=== PATIENT | female | born 1985 | race Two or more races ===

== ENCOUNTER 2017-11-13 09:22 | Emergency (ER) | payer MEDICAID ==
[~2017-11-13] VITALS: Ht 162.6 cm; Wt 77.1 kg
[2017-11-13 10:00] LABS: Basophils # (auto) 0.1 uL; Basophils % (auto) 0.6 % (0.0-2.0); Eosinophils # (auto) 0.1 uL; Eosinophils % (auto) 1.1 % (0.0-7.0); Hematocrit 45.7 % (36.0-46.0); Hemoglobin 15.1 g/dL (12.2-16.2); Lymphocytes # (auto) 2.7 uL; Mean Corpuscular Hemoglobin 30.3 pg (28.0-32.0); Mean Corpuscular Volume 91.6 fL (80.0-100.0); Monocytes # (auto) 0.8 uL; Monocytes % (auto) 9.3 % (0.0-12.0); Nucleated Red Blood Cells % 0.1 %; Platelet Count (auto) 236 10^3/uL (140-450); Red Blood Cells 4.99 10^6/uL (4.0-5.20); Red Cell Distribution Width 13.3 % (11.8-14.3); White Blood Cell 8.6 10^3/uL (4.4-10.8)
[2017-11-13 10:06] LABS: Urine Bacteria NONE SEEN /hpf (None Seen); Urine Blood 3+ /uL (Negative); Urine Mucus FEW (None Seen); Urine Specific Gravity 1.023 (1.001-1.035); Urine WBC 2 /hpf (0 - 5)
[2017-11-13 10:19] LABS: Albumin 4.2 g/dL (3.4-5.0); BUN/Creatinine Ratio 11.4; Bilirubin, Total 0.4 mg/dL (0.2-1.0); Calcium 8.8 mg/dL (8.5-10.1); Total Protein 8.2 g/dL (6.4-8.2)
[2017-11-13 11:51] VITALS: BP 138/93
== END 2017-11-13 13:08 | disposition home or self-care (01) ==
LOC: ER 09:26
DX: O20.0 Threatened abortion (principal); Z3A.09 9 weeks gestation of pregnancy
CPT/HCPCS: 36415; 76801; 80053; 81001; 84702; 85025

== ENCOUNTER 2024-08-19 18:52 | Inpatient (IN) | payer MEDICAID ==
[~2024-08-19] VITALS: Ht 162.6 cm; Wt 81.0 kg
--- NOTE | 2024-08-19 19:06 | ED.PDOC ---
History of Present Illness HPI Comments 39 y/o F, with a history of HTN and and a FMHx of DM, is BIBA for c/o epigastric abdominal pain, that radiates towards her back, today. Patient endorses on sudden and unprovoked onset of 10/10 pain, with no prior history of in the past, following consumption of "buffalo wings," earlier, today. Since initial onset, patient reports on pain improving. She denies being , currently, along with having any nausea, vomiting, diarrhea, constipation, urinary symptoms, or other associated symptoms or modifiers at this time. Time Seen by MD: 19:00 Primary Care Provider: NONE Reviewed Notes: Nurses Notes, Edge Inker Notes, Medications, Allergies Allergies: Coded Allergies: No Known Drug Allergy (Verified Allergy, Unknown, 11/13/17) Information Source: Patient, Emergency Med Personnel Mode of Arrival: EMS Severity: Moderate Timing: Hours Duration: Since onset Prehospital treatment: 12 Lead EKG, Architect Intern Past Medical History PAST MEDICAL HISTORY: HTN Surgical History: MEDICAL TRANSPORT SPECIALIST History: Denies all MEDICAL TRANSPORT SPECIALIST Hx Family History Family History: No family hx of Cancer, No family hx of Heart jyothi, No family hx of HTN, No family hx ofKidney jyothi, No family hx of Liver jyothi, No family hx of Lung jyothi, No family hx of Stroke, Family hx of DM Social History Smoker: Non-Smoker Alcohol: Denies ETOH Use Drugs: Denies Drug Use Lives In: Home Constitutional: denies: chills, diaphoresis, fatigue, fever, malaise, sweats, weakness, others EENTM: denies: blurred vision, double vision, ear bleeding, ear discharge, ear drainage, ear pain, ear ringing, eye pain, eye redness, hearing loss, mouth pain, mouth swelling, nasal discharge, nose bleeding, nose congestion, nose pain, photophobia, tearing, throat pain, throat swelling, voice changes, others Respiratory: denies: cough, hemoptysis, orthopnea, SOB at rest, shortness of breath, SOB with excertion, stridor, wheezing, others Cardiovascular: denies: chest pain, dizzy spells, diaphoresis, Dyspnea on exertion, edema, irregular heart beat, left arm pain, lightheadedness, palpitations, PND, syncope, others Gastrointestinal: reports: abdominal pain; denies: abdomen distended, blood streaked bowels, constipated, diarrhea, dysphagia, difficulty swallowing, hematemesis, melena, nausea, poor appetite, poor fluid intake, rectal bleeding, rectal pain, vomiting, others Genitourinary: denies: abnormal vagina bleeding, burning, dyspareunia, dysuria, flank pain, frequency, hematuria, incontinence, pain, , vagina discharge, urgency, others Neurological: denies: dizziness, fainting, headache, left sided numbness, left sided weakness, numbness, paresthesia, pre-existing deficit, right sided numbness, right sided weakness, seizure, speech problems, tingling, tremors, weakness, others Musculoskeletal: reports: back pain; denies: gout, joint pain, joint swelling, muscle pain, muscle stiffness, neck pain, others Integumetry: denies: bruises, change in color, change in hair/nails, dryness, laceration, lesions, lumps, rash, wounds, others Allergic/Immunocompromised: denies: Difficulty Healing, Frequent Infections, Hives, Itching, others Hematologic/Lymphatic: denies: anemia, blood clots, easy bleeding, easy bruising, swollen glands, others Endocrine: denies: excessive hunger, excessive sweating, excessive thirst, excessive urination, flushing, intolerance to cold, intolerance to heat, unexplained weight gain, unexplained weight loss, others Psychiatric: denies: anxiety, bipolar disorder, depression, hopeless, panic disorder, schizophrenia, sleepless, suicidal, others All Other Systems: Reviewed and Negative Physical Exam General Appearance: Moderate Distress HEENT: Normal ENT Inspection, Pharynx Normal, TMs Normal Neck: Full Range of Motion, Non-Tender, Normal, Normal Inspection Respiratory: Chest Non-Tender, Lungs Clear, No Accessory Muscle Use, No Respiratory Distress, Normal Breath Sounds Cardiovascular: No Edema, No JVD, No Murmur, No Gallop, Normal Peripheral Pulses, Regular Rate/Rhythm Breast Exam: Deferred Gastrointestinal: Epigastric, No Organomegaly, No Pulsatile Mass, Normal Bowel Sounds, Soft, Tenderness Genitalia: Deferred Pelvic: Deferred Rectal: Deferred Extremities: No calf tenderness, Normal capillary refill, Normal inspection, Normal range of motion, Non-tender, No pedal edema Musculoskeletal : Apperance: Normal Neurologic: Alert, speech assistant II-XII nml as Tested, No Motor Deficits, Normal Affect, Normal Mood, No Sensory Deficits Cerebellar Function: Normal Reflexes: Normal Skin: Dry, Normal Color, Warm Lymphatic: No Adenopathy Was a procedure done? Was a procedure done?: No Differential Dx Considerations may include: gastritis, gastroenteritis, PUD, GERD, cholelithiasis, cholecystitis, , viral syndrome, spoiled food, amongst others X-Ray, Labs, Meds, VS Vital Signs Date Time Temp Pulse Resp B/P (MAP) Pulse Ox O2 Delivery O2 Flow Rate FiO2 08/19/24 19:09 98.1 86 16 155/90 (111) 100 98.1 Lab Test 08/19/24 20:04 08/19/24 19:31 Range/Units Urine Color Colorless Yellow Urine Clarity Clear Clear Urine pH 7.0 5.0-9.0 Urine Specific [place] 1.011 1.001-1.035 Urine Protein Negative Negative Urine Ketones Negative Negative Urine Blood Negative Negative /uL Urine Nitrite Negative Negative Urine Bilirubin Negative Negative Urine Urobilinogen Normal Negative mg/dL Urine Leukocyte Esterase Negative Negative /uL Urine RBC 1 0 - 4 /hpf Urine Microscopic WBC < 1 0-5 /HPF Urine Squamous Epithelial Cells Few <5 /hpf Urine Bacteria Few H None Seen /hpf Urine Glucose Normal Normal mg/dL White Blood Count 6.8 4.4-10.8 10^3/uL Red Blood Count 4.75 4.0-5.20 10^6/uL Hemoglobin 14.5 12.2-16.2 g/dL Hematocrit 42.9 36.0-46.0 % Mean Corpuscular Volume 90.4 80.0-100.0 fL Mean Corpuscular Hemoglobin 30.5 28.0-32.0 pg Mean Corpuscular Hemoglobin Concent 33.8 32.0-36.0 g/dL Red Cell Distribution Width 13.0 11.8-14.3 % Platelet Count 224 140-450 10^3/uL Mean Platelet Volume 9.6 6.9-10.8 fL Neutrophils (%) (Auto) 55.1 37.0-80.0 % Lymphocytes (%) (Auto) 32.4 10.0-50.0 % Monocytes (%) (Auto) 9.9 0.0-12.0 % Eosinophils (%) (Auto) 2.0 0.0-7.0 % Basophils (%) (Auto) 0.6 0.0-2.0 % Neutrophils # (Auto) 3.8 1.6-8.6 10 ^3/uL Lymphocytes # (Auto) 2.2 0.4-5.4 10 ^3/uL Monocytes # (Auto) 0.7 0-1.3 10 ^3/uL Eosinophils # (Auto) 0.1 0-0.8 10 ^3/uL Basophils # (Auto) 0 0-0.2 10 ^3/uL Nucleated Red Blood Cells 0.0 % Sodium Level 142 136-145 mmol/L Potassium Level 3.6 3.5-5.1 mmol/L Chloride Level 109 H 98-107 mmol/L Carbon Dioxide Level 25 20-31 mmol/L Anion Gap 8 5-15 Blood Urea Nitrogen 17 9-23 mg/dL Creatinine 0.84 0.550-1.02 mg/dL Glomerular Filtration Rate Calc 91 >90 mL/min BUN/Creatinine Ratio 20.2 H 10.0-20.0 Serum Glucose 93 74-106 mg/dL Calcium Level 9.8 8.7-10.4 mg/dL Total Bilirubin 0.3 0.2-1.0 mg/dL Aspartate Amino Transferase (AST) 105 H 13-40 U/L Alanine Aminotransferase (ALT) 70 H 7-40 U/L Alkaline Phosphatase 87 46-116 U/L Total Protein 7.2 5.7-8.2 g/dL Albumin 4.8 3.2-4.8 g/dL Lipase 46 12-53 U/L Current Medications Medications (Trade) Dose Ordered Sig/Honey Route Start Time Stop Time Status Last Admin Ondansetron HCl (Zofran) 4 mg ONCE ONCE IV 08/19/24 19:15 08/19/24 19:16 DC 08/19/24 20:13 Sodium Chloride 500 ml @ 500 mls/hr Q1H ONCE IVB 08/19/24 19:15 08/19/24 20:14 DC 08/19/24 20:11 Pantoprazole Sodium (Protonix) 40 mg ONCE ONCE IV 08/19/24 19:15 08/19/24 19:16 DC 08/19/24 20:13 CBC is within normal limits The chemistry panel is within normal limits The patient was given Zofran 4 mg IV push for the nausea The patient was given Protonix 40 mg IV push The patient was bolused with normal saline at a 500 cc bolus. The ultrasound of the gallbladder shows cholelithiasis also consistent with acute cholecystitis The patient is pain has decreased somewhat. The patient was being admitted at this time. The patient understands and agrees with the management. Time of 1ST Reevaluation: 19:30 Reevaluation 1ST: Unchanged Patient Education/Counseling: Diagnosis, Treatment, Prognosis Family Education/Counseling: No Family Present Departure 1 Departure Time of Disposition: 20:27 Impression: Primary Impression: Acute abdominal pain Additional Impression: Acute cholecystitis Disposition: ADMITTED INPATIENT Condition: Fair Critical Care Note Critical Care Time?: No Stability Stability form required: Yes Unstable for transfer: ED Physician Assesment (Clinical assesment) Heart Score Heart Score: Heart Score Response (Comments) Value History N/A 0 EKG N/A 0 Age N/A 0 Risk Factors N/A 0 Troponin N/A 0 Total 0 I personally scribed for TALI PENA MD ([email or web address]) on 08/19/24 at 19:06. Electronically submitted by Aaron Yates ([email or web address]). TALI PENA MD Aug 19, 2024 19:06
[2024-08-19 19:44] LABS: Basophils # (auto) 0 10 ^3/uL (0-0.2); Basophils % (auto) 0.6 % (0.0-2.0); Eosinophils # (auto) 0.1 10 ^3/uL (0-0.8); Hematocrit 42.9 % (36.0-46.0); Hemoglobin 14.5 g/dL (12.2-16.2); Lymphocytes # (auto) 2.2 10 ^3/uL (0.4-5.4); Lymphocytes % (auto) 32.4 % (10.0-50.0); Mean Corpuscular Hemoglobin 30.5 pg (28.0-32.0); Mean Corpuscular Hgb Conc. 33.8 g/dL (32.0-36.0); Mean Corpuscular Volume 90.4 fL (80.0-100.0); Monocytes # (auto) 0.7 10 ^3/uL (0-1.3); Monocytes % (auto) 9.9 % (0.0-12.0); Neutrophils # (auto) 3.8 10 ^3/uL (1.6-8.6); Neutrophils % (auto) 55.1 % (37.0-80.0); Platelet Count (auto) 224 10^3/uL (140-450); Red Blood Cells 4.75 10^6/uL (4.0-5.20); White Blood Cell 6.8 10^3/uL (4.4-10.8)
[2024-08-19 19:55] LABS: Albumin 4.8 g/dL (3.2-4.8); Alkaline Phosphatase 87 U/L (46-116); Anion Gap 8 (5-15); BUN/Creatinine Ratio 20.2 (10.0-20.0); Blood Urea Nitrogen 17 mg/dL (9-23); Calcium 9.8 mg/dL (8.7-10.4); Carbon Dioxide 25 mmol/L (20-31); Glucose 93 mg/dL (74-106); Lipase 46 U/L (12-53); Potassium 3.6 mmol/L (3.5-5.1); Sodium 142 mmol/L (136-145); Total Protein 7.2 g/dL (5.7-8.2)
--- NOTE | 2024-08-19 20:08 | DVH ---
Procedure: US GALLBLADDER Study Date and Requested Time: 08/19/2024 07:08 PM History: pain Comparison: None Technique: Multiple high resolution gallegos-scale images obtained of the right upper quadrant of the abd omen with color Doppler for evaluation of blood flow and vascularity as indicated. Findings: Liver normal in size, measuring 14 cm in length, with homogenous echotexture and normal contours. No evidence of focal hepatic lesions, intrahepatic or extrahepatic ductal dilatation. Common bile duct m easures CBD diameter in diameter. Cholelithiasis with no evidence of abnormal wall thickening, biliary sludge, or pericholecystic flui d. Negative sonographic Murillo's sign. Pancreas only partially visualized due to overlying bowel gas but is otherwise unremarkable. Right kidney measures 14.7 cm in length, with normal contours, echotexture, and cortical thickness. T here is possible malrotation of the right kidney. The left kidney measures 14.2 cm in length with nor mal contour, echotexture and cortical thickness. No evidence of hydronephrosis, calculi, cystic or so lid renal lesions bilaterally. Partially visualized inferior vena cava unremarkable. Impression: Cholelithiasis with evidence of acute cholecystitis.Bilateral Kidneys are slightly prominent.
[2024-08-19] MEDS: SODIUM CHLORIDE 0.9% 500 ML IVB ONE (20:11)
[2024-08-19] MEDS: ONDANSETRON HCL 4 MG/2 ML VIAL IV ONE (20:13)
[2024-08-19] MEDS: PANTOPRAZOLE 40 MG/10 ML VIAL INJ IV ONE (20:13)
[2024-08-19 20:14] LABS: Alanine Aminotransferase 70 U/L (7-40); Aspartate Aminotransferase 105 U/L (13-40); Bilirubin, Total 0.3 mg/dL (0.2-1.0); Chloride 109 mmol/L (98-107)
[2024-08-19 20:21] LABS: Urine Bacteria FEW /hpf (None Seen); Urine Blood Negative /uL (Negative); Urine Clarity Clear (Clear); Urine Color Colorless (Yellow); Urine Protein, UAD Negative (Negative); Urine Specific Gravity 1.011 (1.001-1.035); Urine Squamous Epithelial Cell FEW /hpf (<5); Urine Urobilinogen Normal (Negative); Urine WBC < 1 /HPF (0-5)
[2024-08-19 20:38] VITALS: PULSE 76; RESP 18; O2SAT 98
[2024-08-19] MEDS ORDERED: KETOROLAC TROMETH 30 MG/ML 1ML VIAL IV PRN (21:45)
--- NOTE | 2024-08-19 21:55 | DVHHPRES ---
History of Present Illness Resident Creating Document: DANDRE LIU RESDIENT History of Present Illness This is a 39-year-old female with past medical history of hypertension came to the hospital due to abdominal pain for 3 hours. She reports an intermittent epigastric pain, radiating to the back, 8/10, burning in nature, with no clear exacerbating or relieving factor. She also reports shortness of breaths. She denies fever, nausea, vomiting, or any bowel and bladder habit changes. She had same pain few years back which was mild but had not perform any workup at the time. PMHx: Hypertension PSHx: Family history: Mom has hypertension, that has DM Social history: Denies smoking, or any other drug use. Home medication: Amlodipine 10 mg Allergic history: No known allergy Review of Systems Review of Systems General: patient denies fever, fatigue, weaknes, sweating, any recent changes in appetite and weight HEENT: No headaches, visiual changes, hearing loss, tinnitus, nasal congestion and discharge, and sore throat. Cardiovascular: Denies chest pain, palpitations, dyspnea on exertion, orthopnea, or claudication. Respiratory: Reports shortness of breaths Gastrointestinal: Reports abdominal pain Genitourinary: No dysuria, hematuria, discharge, frequency, urgency, nocturia, incontinence, and urinary retention. Endocrine: No heat or cold intolerance, polydipsia, polyuria, and polyphagia. Neurological: No dizziness, extremity weakness and numbness, tremors, gait disturbance, seizures, and memory impairment. Psychiatric: Denies depression, anxiety,or insomnia. Musculoskeletal: Denies neck pain, stiffness and swelling, back pain, muscle weakness, joint pain, stiffness, swelling, or limited range of motion. Skin: No rashes, itching, skin lesion, changes in hair, nail, skin texture and breast. Hematologic/Lymphatic: Denies easy bruising, bleeding tendencies, or lymph node enlargement. Allergies: Coded Allergies: No Known Drug Allergy (Verified Allergy, Unknown, 11/13/17) Exam Vital Signs Vital Signs Date Time Temp Pulse Resp B/P (MAP) Pulse Ox O2 Delivery O2 Flow Rate FiO2 08/19/24 20:38 76 18 98 Room Air* 0 21 08/19/24 19:09 98.1 155/90 (111) 98.1 Exam General Appearance: Alert, Oriented X3, Cooperative, No acute distress HEENT: Atraumatic, PERRLA, EOMI, Mucous membrane moist/pink Respiratory: Clear to auscultation, Normal air movement Cardiovascular: Regular rate, Normal S1, Normal S2, No murmurs, no chest wall tenderness Abdominal: Mild epigastric tenderness with negative Murillo sign Extremities: No clubbing, No cyanosis, No edema, Normal pulses, No tenderness/swelling Skin: No rashes, No breakdown, No significant lesion Neuro: Normal gait, Normal speech, Strength at 5/5 X4 ext, Normal tone, Sensation intact, Cranial nerves 3-12 NL, Reflexes 2+ Psych/Mental Status: Mental status NL, Mood NL Labs/Xrays Labs Test 08/19/24 20:04 08/19/24 19:31 Range/Units Urine Color Colorless Yellow Urine Clarity Clear Clear Urine pH 7.0 5.0-9.0 Urine Specific [place] 1.011 1.001-1.035 Urine Protein Negative Negative Urine Ketones Negative Negative Urine Blood Negative Negative /uL Urine Nitrite Negative Negative Urine Bilirubin Negative Negative Urine Urobilinogen Normal Negative mg/dL Urine Leukocyte Esterase Negative Negative /uL Urine RBC 1 0 - 4 /hpf Urine Microscopic WBC < 1 0-5 /HPF Urine Squamous Epithelial Cells Few <5 /hpf Urine Bacteria Few H None Seen /hpf Urine Glucose Normal Normal mg/dL White Blood Count 6.8 4.4-10.8 10^3/uL Red Blood Count 4.75 4.0-5.20 10^6/uL Hemoglobin 14.5 12.2-16.2 g/dL Hematocrit 42.9 36.0-46.0 % Mean Corpuscular Volume 90.4 80.0-100.0 fL Mean Corpuscular Hemoglobin 30.5 28.0-32.0 pg Mean Corpuscular Hemoglobin Concent 33.8 32.0-36.0 g/dL Red Cell Distribution Width 13.0 11.8-14.3 % Platelet Count 224 140-450 10^3/uL Mean Platelet Volume 9.6 6.9-10.8 fL Neutrophils (%) (Auto) 55.1 37.0-80.0 % Lymphocytes (%) (Auto) 32.4 10.0-50.0 % Monocytes (%) (Auto) 9.9 0.0-12.0 % Eosinophils (%) (Auto) 2.0 0.0-7.0 % Basophils (%) (Auto) 0.6 0.0-2.0 % Neutrophils # (Auto) 3.8 1.6-8.6 10 ^3/uL Lymphocytes # (Auto) 2.2 0.4-5.4 10 ^3/uL Monocytes # (Auto) 0.7 0-1.3 10 ^3/uL Eosinophils # (Auto) 0.1 0-0.8 10 ^3/uL Basophils # (Auto) 0 0-0.2 10 ^3/uL Nucleated Red Blood Cells 0.0 % Sodium Level 142 136-145 mmol/L Potassium Level 3.6 3.5-5.1 mmol/L Chloride Level 109 H 98-107 mmol/L Carbon Dioxide Level 25 20-31 mmol/L Anion Gap 8 5-15 Blood Urea Nitrogen 17 9-23 mg/dL Creatinine 0.84 0.550-1.02 mg/dL Glomerular Filtration Rate Calc 91 >90 mL/min BUN/Creatinine Ratio 20.2 H 10.0-20.0 Serum Glucose 93 74-106 mg/dL Calcium Level 9.8 8.7-10.4 mg/dL Total Bilirubin 0.3 0.2-1.0 mg/dL Aspartate Amino Transferase (AST) 105 H 13-40 U/L Alanine Aminotransferase (ALT) 70 H 7-40 U/L Alkaline Phosphatase 87 46-116 U/L Total Protein 7.2 5.7-8.2 g/dL Albumin 4.8 3.2-4.8 g/dL Lipase 46 12-53 U/L Assessment/Plan Assessment/Plan Cholelithiasis with possible cholecystitis Ultrasound shows, cholelithiasis with evidence of acute cholecystitis Surgical consultation Empiric antibiotic, Zosyn IV fluid Pain control NPO History of hypertension Continue amlodipine Transaminitis DIET: NPO GI PROPHYLAXIS:: Protonix CODE STATUS: Goal of care for more than 18 minutes, full code DISPOSITION: Med/surge Patient's status and plan discussed with the patient. Case discussed with Dr. [place]. Plan discussed with: Patient, Other (RN) Date of Service: Aug 19, 2024 Billing Provider: RENZO CLEVELAND MD Common Visit Codes: [id number] INP/OBS CARE (HIGH) HEWADMAL,DANDRE WHATLEY Aug 19, 2024 21:55 RENZO CLEVELAND MD Aug 20, 2024 10:59
[2024-08-19 22:33] LABS: Amphetamine Screen, Urine Neg (NEGATIVE); Barbiturate Scree,Urine Neg (NEGATIVE); Benzodiazephine Screen, Urine Neg (NEGATIVE); Cannabinoid Screen, Urine Neg (NEGATIVE); Cocaine Screen, Urine Neg (NEGATIVE); Opiate Scree,Urine Neg (NEGATIVE); Phencyclidine Screen, Urine Neg (NEGATIVE)
[2024-08-20 01:00] LABS: Cholesterol 199 mg/dL (< 200); HDL Cholesterol 41 mg/dL (40-59)
[2024-08-20 01:20] LABS: LDL Cholesterol 142 mg/dL (< 100); Triglycerides 200 mg/dL (< 150)
[2024-08-20] MEDS: ONDANSETRON HCL 4 MG/2 ML VIAL IV ONE (04:19)
[2024-08-20] MEDS: KETOROLAC TROMETH 30 MG/ML 1ML VIAL IV ONE (04:19)
[2024-08-20] MEDS: SODIUM CHLORIDE 0.9% 1,000 ML IV SCH (04:20)
[2024-08-20] MEDS: amLODIPine BESYLATE 5 MG TAB PO ONE (04:24)
[2024-08-20] MEDS: SODIUM CHLORIDE 0.9% 1,000 ML IV ONE (04:26)
[2024-08-20] MEDS: PIPERACILLIN-TAZOB 3.375GM 100 ML IV SCH (04:30)
[2024-08-20] MEDS: PIPERACILLIN-TAZOB 3.375GM 100 ML IV ONE (04:30)
[2024-08-20] MEDS ORDERED: MECLIZINE HCL 25 MG TAB PO PRN (04:30)
[2024-08-20 05:36] LABS: Basophils # (auto) 0 10 ^3/uL (0-0.2); Basophils % (auto) 0.8 % (0.0-2.0); Eosinophils # (auto) 0.1 10 ^3/uL (0-0.8); Eosinophils % (auto) 2.4 % (0.0-7.0); Hematocrit 40.7 % (36.0-46.0); Hemoglobin 13.6 g/dL (12.2-16.2); Lymphocytes # (auto) 2.2 10 ^3/uL (0.4-5.4); Lymphocytes % (auto) 34.5 % (10.0-50.0); Mean Corpuscular Hemoglobin 30.7 pg (28.0-32.0); Mean Corpuscular Hgb Conc. 33.4 g/dL (32.0-36.0); Mean Corpuscular Volume 91.9 fL (80.0-100.0); Monocytes # (auto) 0.7 10 ^3/uL (0-1.3); Monocytes % (auto) 10.8 % (0.0-12.0); Neutrophils # (auto) 3.2 10 ^3/uL (1.6-8.6); Neutrophils % (auto) 51.5 % (37.0-80.0); Nucleated Red Blood Cells % 0.1 %; Platelet Count (auto) 209 10^3/uL (140-450); Red Blood Cells 4.43 10^6/uL (4.0-5.20); Red Cell Distribution Width 13.2 % (11.8-14.3); White Blood Cell 6.2 10^3/uL (4.4-10.8)
[2024-08-20 05:49] LABS: Alkaline Phosphatase 75 U/L (46-116); Anion Gap 6 (5-15); Aspartate Aminotransferase 34 U/L (13-40); BUN/Creatinine Ratio 13.3 (10.0-20.0); Blood Urea Nitrogen 10 mg/dL (9-23); Calcium 9.2 mg/dL (8.7-10.4); Carbon Dioxide 24 mmol/L (20-31); Glucose 97 mg/dL (74-106); Lipase 41 U/L (12-53); Potassium 3.5 mmol/L (3.5-5.1); Sodium 140 mmol/L (136-145)
[2024-08-20 05:50] LABS: Albumin 4.6 g/dL (3.2-4.8); Bilirubin, Total 0.6 mg/dL (0.2-1.0)
[2024-08-20 05:57] LABS: Alanine Aminotransferase 54 U/L (7-40); Chloride 110 mmol/L (98-107)
[2024-08-20 06:39] LABS: INR 1.08 (0.9-1.15); Prothrombin Time 11.4 sec (9.3-11.8)
[2024-08-20 09:00] VITALS: BP 138/102; PULSE 68; RESP 14; TEMP 98.8; O2SAT 98
--- NOTE | 2024-08-20 10:44 | DVHPNRES ---
Progress Note Date Seen: Aug 20, 2024 Resident Creating Document: FRED SHANKAR RESIDENT Medical Necessity Reason Pt with a Central, PICC or Fol: No Subjective Review of Systems Tiffany Plunkett is a 39-year-old female with past medical history of hypertension came to the hospital due to abdominal pain for 3 hours. She reports an intermittent epigastric pain, radiating to the back, 8/10, burning in nature, with no clear exacerbating or relieving factor. She also reports shortness of breaths. She denies fever, nausea, vomiting, or any bowel and bladder habit changes. She had same pain few years back which was mild but had not perform any workup at the time. PMHx: Hypertension PSHx: Family history: Mom has hypertension, that has DM Social history: Denies smoking, or any other drug use. Home medication: Amlodipine 10 mg Allergic history: No known allergy Patient is seen and examined at the bedside. Patient currently reporting abdominal pain which is on and off mostly in the epigastrium on the right upper quadrant but no new complaints. Pending surgical evaluation. Patient reports: No new complaints Objective vital signs Vital Sign Date Time Temp Pulse Resp B/P (MAP) Pulse Ox O2 Delivery O2 Flow Rate FiO2 08/20/24 06:47 98.8 76 16 138/102 (114) 98 98.8 08/20/24 04:32 Room Air 08/19/24 20:38 0 21 Total Intake and Output 08/19/24 08/19/24 08/20/24 15:00 23:00 07:00 Intake Total 500 ml 1000 ml Balance 500 ml 1000 ml medications Current Medications Medications Dose Ordered Sig/Honey Route Start Time Stop Time Status Last Admin Dose Admin Sodium Chloride 1,000 ml @ 100 mls/hr Q10H IV 08/19/24 21:45 Piperacillin Sod/ Tazobactam Sod 100 ml @ 25 mls/hr Q8HR IV 08/19/24 22:00 08/20/24 06:15 25 MLS/HR Ketorolac Tromethamine 15 mg Q6HPRN PRN IV 08/19/24 21:45 08/24/24 21:44 Ondansetron HCl 4 mg Q4HPRN PRN IV 08/19/24 21:45 Morphine Sulfate 1 mg Q4HP PRN IV 08/19/24 21:45 Amlodipine Besylate 10 mg DAILY PO 08/20/24 10:00 Pantoprazole Sodium 40 mg DAILY IV 08/20/24 10:00 Meclizine HCl 25 mg Q8HPRN PRN PO 08/20/24 04:30 Examination General Appearance: Alert, Oriented X3, Cooperative, No acute distress HEENT: Atraumatic, PERRLA, EOMI, Mucous membrane moist/pink Respiratory: Clear to auscultation, Normal air movement Cardiovascular: Regular rate, Normal S1, Normal S2, No murmurs, no chest wall tenderness Abdominal: Mild epigastric tenderness with negative Murillo sign Extremities: No clubbing, No cyanosis, No edema, Normal pulses, No tenderness/swelling Skin: No rashes, No breakdown, No significant lesion Neuro: Normal gait, Normal speech, Strength at 5/5 X4 ext, Normal tone, Sensation intact Psych/Mental Status: Mental status NL, Mood NL laboratory and microbiology Laboratory Tests 08/20/24 05:10 Test 08/20/24 05:10 Range/Units Serum Glucose 97 74-106 mg/dL Labs and/or images reviewed: Labs reviewed by me, Image(s) reviewed by me Problem List/Assessment/Plan Problem List/Assessment/Plan # Cholelithiasis with Acute cholecystitis - Ultrasound shows, cholelithiasis with evidence of acute cholecystitis - Surgical consultation - Empiric antibiotic, Zosyn - IV fluid - Pain control - NPO # History of hypertension - Continue amlodipine # Transaminitis likly from above - Monitor for now Protonix Scds NPO Goals of care discussed with the patient for more than 29 mins: full code status Case discussed with , patient and RN Plan discussed with: Patient Date of Service: Aug 20, 2024 Billing Provider: KAYLEEN LIZARRAGA MD Common Visit Codes: [id number] INP/OBS CARE(HIGH) FRED SHANKAR RESIDENT Aug 20, 2024 10:44 KAYLEEN LIZARRAGA MD Aug 27, 2024 23:12
[2024-08-20] MEDS: PANTOPRAZOLE 40 MG/10 ML VIAL INJ IV SCH (11:31)
[2024-08-20] MEDS: amLODIPine BESYLATE 5 MG TAB PO SCH (11:32)
[2024-08-20 13:00] VITALS: BP 124/9; PULSE 76; RESP 16; TEMP 98.4; O2SAT 99
[2024-08-20 14:39] VITALS: BP 138/102; PULSE 68; RESP 68; TEMP 98.8; O2SAT 98
--- NOTE | 2024-08-20 15:01 | DVH ---
EXAM: XY CHEST XRAY 1 VIEW Indication: Sob Technique: Single frontal view of the chest was obtained Comparison: None FINDINGS: Lines and Tubes: None Lungs: No focal consolidation. Pleura: No effusion. No pneumothorax. Cardiomediastinal contours: Unremarkable Bones: No acute osseous abnormality. IMPRESSION: No acute cardiopulmonary disease.
[2024-08-20] MEDS ORDERED: KETOROLAC TROMETH 30 MG/ML 1ML VIAL IV ONE (16:45)
[2024-08-20 16:48] VITALS: BP 135/90; PULSE 84; RESP 16; TEMP 97.9; O2SAT 97
[2024-08-20 20:00] VITALS: PULSE 97; RESP 17; O2SAT 98
[2024-08-20 21:00] VITALS: BP 144/99; PULSE 97; RESP 17; TEMP 98.1; O2SAT 98
[2024-08-20 22:52] LABS: COVID19 ANTIGEN SOFIA FIA NEGATIVE (NEGATIVE); Rapid Influenza A Negative (Negative); Rapid Influenza B Negative (Negative)
[2024-08-21] VITALS (7 sets, daily range): BP systolic 119–146; BP diastolic 75–88; PULSE 60–98; RESP 14–21; TEMP 97.8–98.2; O2SAT 93–99
[2024-08-21 05:58] LABS: Basophils # (auto) 0 10 ^3/uL (0-0.2); Basophils % (auto) 0.8 % (0.0-2.0); Eosinophils # (auto) 0.2 10 ^3/uL (0-0.8); Eosinophils % (auto) 3.3 % (0.0-7.0); Hematocrit 44.8 % (36.0-46.0); Mean Corpuscular Hemoglobin 30.7 pg (28.0-32.0); Mean Corpuscular Hgb Conc. 33.5 g/dL (32.0-36.0); Mean Corpuscular Volume 91.5 fL (80.0-100.0); Monocytes # (auto) 0.6 10 ^3/uL (0-1.3); Monocytes % (auto) 10.4 % (0.0-12.0); Neutrophils # (auto) 2.8 10 ^3/uL (1.6-8.6); Neutrophils % (auto) 49.5 % (37.0-80.0); Nucleated Red Blood Cells % 0.1 %; Platelet Count (auto) 236 10^3/uL (140-450); Red Blood Cells 4.89 10^6/uL (4.0-5.20); Red Cell Distribution Width 13.2 % (11.8-14.3); White Blood Cell 5.7 10^3/uL (4.4-10.8)
[2024-08-21 06:19] LABS: Albumin 4.7 g/dL (3.2-4.8); Alkaline Phosphatase 77 U/L (46-116); Anion Gap 10 (5-15); Aspartate Aminotransferase 23 U/L (13-40); Bilirubin, Total 0.8 mg/dL (0.2-1.0); Blood Urea Nitrogen 10 mg/dL (9-23); Calcium 9.6 mg/dL (8.7-10.4); Carbon Dioxide 21 mmol/L (20-31); Glucose 91 mg/dL (74-106); Sodium 140 mmol/L (136-145); Total Protein 7.3 g/dL (5.7-8.2)
[2024-08-21 06:33] LABS: Alanine Aminotransferase 43 U/L (7-40); Chloride 109 mmol/L (98-107)
--- NOTE | 2024-08-21 11:49 | DVHINCON2 ---
Date of service: Aug 21, 2024 Family History: Diabetes mellitus G8 FATHER Hypertension G8 MOTHER Allergies: Coded Allergies: No Known Drug Allergy (Verified Allergy, Unknown, 11/13/17) Current Medications Current Medications Medications (Trade) Dose Ordered Sig/Honey Route PRN Reason Start Time Stop Time Status Last Admin Ibuprofen (Motrin Tablet) 600 mg TID PRN PO FOR HEADACHE 08/20/24 16:00 Vital Signs Vital Signs Date Time Temp Pulse Resp B/P (MAP) Pulse Ox O2 Delivery O2 Flow Rate FiO2 08/21/24 09:30 98.1 72 14 133/88 (103) 99 98.1 08/20/24 20:00 Room Air* 0 21 Labs/Diagnostic Data Labs Test 08/21/24 05:25 08/20/24 22:23 08/20/24 09:45 08/20/24 05:10 Range/Units White Blood Count 5.7 4.4-10.8 10^3/uL Red Blood Count 4.89 4.0-5.20 10^6/uL Hemoglobin 15.0 12.2-16.2 g/dL Hematocrit 44.8 # 36.0-46.0 % Mean Corpuscular Volume 91.5 80.0-100.0 fL Mean Corpuscular Hemoglobin 30.7 28.0-32.0 pg Mean Corpuscular Hemoglobin Concent 33.5 32.0-36.0 g/dL Red Cell Distribution Width 13.2 11.8-14.3 % Platelet Count 236 140-450 10^3/uL Mean Platelet Volume 9.9 6.9-10.8 fL Neutrophils (%) (Auto) 49.5 37.0-80.0 % Lymphocytes (%) (Auto) 36.0 10.0-50.0 % Monocytes (%) (Auto) 10.4 0.0-12.0 % Eosinophils (%) (Auto) 3.3 0.0-7.0 % Basophils (%) (Auto) 0.8 0.0-2.0 % Neutrophils # (Auto) 2.8 1.6-8.6 10 ^3/uL Lymphocytes # (Auto) 2.0 0.4-5.4 10 ^3/uL Monocytes # (Auto) 0.6 0-1.3 10 ^3/uL Eosinophils # (Auto) 0.2 0-0.8 10 ^3/uL Basophils # (Auto) 0 0-0.2 10 ^3/uL Nucleated Red Blood Cells 0.1 % Sodium Level 140 136-145 mmol/L Potassium Level 4.0 3.5-5.1 mmol/L Chloride Level 109 H 98-107 mmol/L Carbon Dioxide Level 21 20-31 mmol/L Anion Gap 10 5-15 Blood Urea Nitrogen 10 9-23 mg/dL Creatinine 0.77 0.550-1.02 mg/dL Glomerular Filtration Rate Calc 101 >90 mL/min BUN/Creatinine Ratio 13.0 10.0-20.0 Serum Glucose 91 74-106 mg/dL Calcium Level 9.6 8.7-10.4 mg/dL Total Bilirubin 0.8 0.2-1.0 mg/dL Aspartate Amino Transferase (AST) 23 13-40 U/L Alanine Aminotransferase (ALT) 43 H 7-40 U/L Alkaline Phosphatase 77 46-116 U/L Total Protein 7.3 5.7-8.2 g/dL Albumin 4.7 3.2-4.8 g/dL Influenza Type A Antigen Negative Negative Influenza Type B Antigen Negative Negative SARS-CoV-2 Antigen (Rapid) Negative NEGATIVE Lactic Acid Level 0.8 0.4-2.0 mmol/L Prothrombin Time 11.4 9.3-11.8 sec Prothrombin Time INR 1.08 0.9-1.15 Lipase 41 12-53 U/L Beta HCG, Quantitative 0.8 L 1.5-4.2 mIU/mL Test 08/19/24 20:04 08/19/24 19:31 Range/Units Urine Color Colorless Yellow Urine Clarity Clear Clear Urine pH 7.0 5.0-9.0 Urine Specific [place] 1.011 1.001-1.035 Urine Protein Negative Negative Urine Ketones Negative Negative Urine Blood Negative Negative /uL Urine Nitrite Negative Negative Urine Bilirubin Negative Negative Urine Urobilinogen Normal Negative mg/dL Urine Leukocyte Esterase Negative Negative /uL Urine RBC 1 0 - 4 /hpf Urine Microscopic WBC < 1 0-5 /HPF Urine Squamous Epithelial Cells Few <5 /hpf Urine Bacteria Few H None Seen /hpf Urine Glucose Normal Normal mg/dL Urine Opiates Screen Neg NEGATIVE Urine Fentanyl Screen Neg NEGATIVE Urine Barbiturates Screen Neg NEGATIVE Urine Phencyclidine Screen Neg NEGATIVE Urine Amphetamines Screen Neg NEGATIVE Urine Benzodiazepines Screen Neg NEGATIVE Urine Cocaine Screen Neg NEGATIVE Urine Cannabinoids Screen Neg NEGATIVE Hemoglobin A1c 5.3 <5.7 % A1C Magnesium Level 2.1 1.6-2.6 mg/dL Triglycerides Level 200 H < 150 mg/dL Cholesterol Level 199 < 200 mg/dL LDL Cholesterol 142 H < 100 mg/dL HDL Cholesterol 41 40-59 mg/dL Thyroid Stimulating Hormone (TSH) 1.76 0.55-4.78 uIU/mL Plasma/Serum Blood Alcohol < 3.0 <10 mg/dL Assessment [id number] R/O AC CHOLECYSTITIS CONSIDER LAP/OPEN CHOLECYSTECTOMY BASED ON ONGOING EVAL Plan discussed with: Patient PANCHO DAHL MD Aug 21, 2024 11:49
[2024-08-21] MEDS ORDERED: LIDOCAINE 1% HCL (LOCAL ANESTH.) INJ 20ML MDV ONE (12:29)
--- NOTE | 2024-08-21 12:32 | DVHPNRES ---
Progress Note Date Seen: Aug 21, 2024 Resident Creating Document: FRED SHANKAR RESIDENT Medical Necessity Reason Pt with a Central, PICC or Fol: No Subjective Review of Systems Tiffany Plunkett is a 39-year-old female with past medical history of hypertension came to the hospital due to abdominal pain for 3 hours. Patient is seen and examined at the bedside. Patient currently reporting abdominal pain which is on and off mostly in the epigastrium on the right upper quadrant but no new complaints. recruiting consultant evaluated patient , underwent laparoscopic cholecystectomy postoperative day 0, patient tolerated the procedure well. Patient reports: No new complaints Changes from previous H/P or p: No Changes Objective vital signs Vital Sign Date Time Temp Pulse Resp B/P (MAP) Pulse Ox O2 Delivery O2 Flow Rate FiO2 08/21/24 09:30 98.1 72 14 133/88 (103) 99 98.1 08/21/24 08:00 Room Air* 0 21 Total Intake and Output 08/20/24 08/20/24 08/21/24 15:00 23:00 07:00 Intake Total 100 ml 1030 ml Balance 100 ml 1030 ml medications Current Medications Medications Dose Ordered Sig/Honey Route Start Time Stop Time Status Last Admin Dose Admin Sodium Chloride 1,000 ml @ 100 mls/hr Q10H IV 08/19/24 21:45 08/21/24 05:34 100 MLS/HR Piperacillin Sod/ Tazobactam Sod 100 ml @ 25 mls/hr Q8HR IV 08/19/24 22:00 08/21/24 05:30 25 MLS/HR Ondansetron HCl 4 mg Q4HPRN PRN IV 08/19/24 21:45 Morphine Sulfate 1 mg Q4HP PRN IV 08/19/24 21:45 Amlodipine Besylate 10 mg DAILY PO 08/20/24 10:00 08/20/24 11:32 10 MG Pantoprazole Sodium 40 mg DAILY IV 08/20/24 10:00 08/21/24 09:49 40 MG Meclizine HCl 25 mg Q8HPRN PRN PO 08/20/24 04:30 Ibuprofen 600 mg TID PRN PO 08/20/24 16:00 Examination General Appearance: Alert, Oriented X3, Cooperative, No acute distress HEENT: Atraumatic, PERRLA, EOMI, Mucous membrane moist/pink Respiratory: Clear to auscultation, Normal air movement Cardiovascular: Regular rate, Normal S1, Normal S2, No murmurs, no chest wall tenderness Abdominal: Mild epigastric tenderness with negative Murillo sign Extremities: No clubbing, No cyanosis, No edema, Normal pulses, No tenderness/swelling Skin: No rashes, No breakdown, No significant lesion Neuro: Normal gait, Normal speech, Strength at 5/5 X4 ext, Normal tone, Sensation intact Psych/Mental Status: Mental status NL, Mood NL laboratory and microbiology Laboratory Tests 08/21/24 05:25 Test 08/21/24 05:25 Range/Units Serum Glucose 91 74-106 mg/dL Labs and/or images reviewed: Labs reviewed by me, Image(s) reviewed by me Problem List/Assessment/Plan Problem List/Assessment/Plan # Cholelithiasis with Acute cholecystitis - Ultrasound shows, cholelithiasis with evidence of acute cholecystitis - recruiting consultant evaluated patient , underwent laparoscopic cholecystectomy postoperative day 0, patient tolerated the procedure well. - Empiric antibiotic, Zosyn - IV fluid - Pain control # History of hypertension - Continue amlodipine # Transaminitis likly from above - Monitor for now Protonix Scds NPO Goals of care discussed with the patient for more than 29 mins: full code status Case discussed with , patient and RN Plan discussed with: Patient My Orders My Orders Orders - FRED SHANKAR Procedure Category Date Status Time Chest Xray 1 View XY 08/20/24 Resulted 14:04 Dietary Evaluation Review Comments: 1. Pending surgical consult, advance to Cardiac diet as able 2. Pt not to go >7 days NPO -> currently day 2 3. Will follow for diet progression/PO intake Expected Outcomes/Goals: Diet advancement, adequate oral intakes. Date of Service: Aug 21, 2024 Billing Provider: KAYLEEN LIZARRAGA MD Common Visit Codes: [id number] INP/OBS CARE(HIGH) FRED SHANKAR Aug 21, 2024 12:31 KAYLEEN LIZARRAGA MD Aug 27, 2024 23:25
[2024-08-21] MEDS ORDERED: KETOROLAC TROMETH 30 MG/ML 1ML VIAL IV ONE (14:00)
[2024-08-21] MEDS ORDERED: MORPHINE SULFATE 4 MG/ML SYR/VIAL IV PRN (14:00)
[2024-08-21] MEDS ORDERED: METOCLOPRAMIDE HCL 5MG/ml INJ 2ml VIAL IV ONE (14:00)
[2024-08-21] MEDS ORDERED: HYDROmorphone HCL 2 MG/ML VL/or syr IV PRN (14:00)
[2024-08-21] MEDS ORDERED: MIDAZOLAM HCL 2MG/2ML 2ml VIAL (1mg/ml) ONE (14:43)
[2024-08-21] MEDS ORDERED: fentaNYL CITRATE 100 MCG/2 ML VL ONE (14:43)
[2024-08-21] MEDS ORDERED: KETAMINE 50mg/ML 1ml syringe ONE (14:43)
[2024-08-21] MEDS ORDERED: ONDANSETRON HCL 4 MG/2 ML VIAL ONE (14:44)
[2024-08-21] MEDS ORDERED: HYDROmorphone HCL 2 MG/ML VL/or syr ONE (14:44)
[2024-08-21] MEDS ORDERED: LIDOCAINE HCL 2% TOP JELLY 5ML TOP ONE (14:44)
[2024-08-21] MEDS ORDERED: PROPOFOL 10 MG/ML 20 ML IV ONE (14:44)
[2024-08-21] MEDS ORDERED: ROCURONIUM 10MG/ML 10ML VIAL IV ONE (14:44)
[2024-08-21] MEDS ORDERED: GLYCOPYRROLATE 0.2 MG/ML 1ML VIAL ONE (14:44)
[2024-08-21] MEDS ORDERED: NEOSTIGMINE 1 MG/ML INJ (10mg/10ML VIAL) ONE (14:44)
[2024-08-21] MEDS ORDERED: LIDOCAINE 1% INJ PF 5ML AMP ONE (14:44)
[2024-08-21] MEDS ORDERED: SODIUM CHLORIDE LOCK 10 ML ONE (14:44)
[2024-08-21] MEDS ORDERED: ceFAZolin 2 GM/D5W100ml 100 ML IV ONE (14:45)
[2024-08-21] MEDS ORDERED: BUPIVACAINE 0.25% INJ 50ML VIAL ONE (15:14)
--- NOTE | 2024-08-21 15:54 | DVHINCON2 ---
DATE OF CONSULTATION: 08/21/2024 HISTORY OF PRESENT ILLNESS: This patient is 39 years old, coming in with right upper quadrant pain, now feeling better, some nausea, no vomiting. No constipation or diarrhea. No hematemesis or melena. No bleeding per rectum. PAST MEDICAL HISTORY: No diabetes, but she has hypertension. PAST SURGICAL HISTORY: . PHYSICAL EXAMINATION: VITAL SIGNS: Afebrile, stable signs. HEENT: With no evidence of pallor, cyanosis, or jaundice. NECK: Supple, nontender with no thyromegaly, lymphadenopathy. CHEST AND LUNGS: Clear. HEART: Within normal limits. ABDOMEN: Soft, tender in the right upper quadrant with minimal rebound. EXTREMITIES: Unremarkable. NEUROLOGIC: Intact. CLINICAL IMPRESSION: Acute cholecystitis. PLAN: Will be to consider laparoscopic possible open cholecystectomy. Benefits discussed and a consent obtained. MD ASPEN Marte/GABRIELLA/WOO TID: [id number] RECEIPT: [id number] cc: Suhas
[2024-08-21] MEDS ORDERED: MORPHINE SULFATE INJ 2 MG/ml SYRG IV PRN (16:30)
--- NOTE | 2024-08-21 17:18 | DVHOP2 ---
Operative Report [id number] AC CHOLECYSTITIS LAP CHOLECYSTECTOMY [id number] CC ONE DRAIN NO COMPLICATIONS PANCHO DAHL MD Aug 21, 2024 17:18
--- NOTE | 2024-08-21 17:29 | DVHOP ---
DATE OF SURGERY: 08/21/2024 PREOPERATIVE DIAGNOSIS: Acute cholecystitis. POSTOPERATIVE DIAGNOSIS: Acute cholecystitis. PROCEDURE: Laparoscopic cholecystectomy. SURGEON: Lincoln Barrientos MD SCAFFOLDING HELPER: None. ANESTHESIA: General. ESTIMATED BLOOD LOSS: 200 mL. DRAIN: One drain was used. COMPLICATIONS: No complications were encountered. DESCRIPTION OF PROCEDURE: The patient was prepped and draped in the usual sterile fashion in the supine position and a supraumbilical incision was applied, was taken down to the fascia. The Veress needle was introduced and CO2 insufflation was started, pressure of 15 mmHg. The needle was withdrawn, replaced with a 5 mm trocar and a telescope was introduced and the gallbladder was visualized. Adhesions were noted. A 12 mm port was applied close to the xiphisternum and two 5 mm ports were applied more laterally in subcostal line with instruments in place. The gallbladder was released from the adhesions and the patient in the head up and right upper lateral position, the gallbladder was then grasped at the fundus and the infundibulum and cystic duct and artery were , dissected out and clipped proximally, distally using the Hem-o-Landen clips and divided in between making sure that the CBD was kept out of harm's way at all times. The gallbladder was detached from the liver bed using Harmonic dissection, placed in an EndoCatch bag and removed from the xiphisternal wound without any complication. Hemostasis was secured. Irrigation fluid was removed and a size 19 Negrito drainage tube was placed to drain the liver bed along with the subhepatic space and bringing out from the lateral subcostal incision. After that, one port had been withdrawn and securing the drain with a silk suture. There was a bleed noted in the xiphisternal wound that was secured by open exploration and cautery. With this being done, EndoClose suture was used for the fascial closure of the xiphisternal wound. All ports were withdrawn after all the CO2 had been let out and the patient was placed in supine. The wounds were then brought together using 3-0 Monocryl suture in a subcuticular fashion. Surgical glue was applied. The patient tolerated the procedure well and was taken back to recovery room in a stable condition. MD ASPEN Marte/RUBI TID: [id number] RECEIPT: [id number] cc: Joe Norton
[2024-08-21] MEDS: HYDROmorphone HCL 2 MG/ML VL/or syr IV PRN (17:39)
[2024-08-21] MEDS: MORPHINE SULFATE INJ 2 MG/ml SYRG IV PRN (22:01)
[2024-08-22] VITALS (7 sets, daily range): BP systolic 134–148; BP diastolic 73–94; PULSE 69–111; RESP 16–19; TEMP 97.3–98.5; O2SAT 94–98
[2024-08-22] MEDS: ONDANSETRON HCL 4 MG/2 ML VIAL IV PRN (03:20)
[2024-08-22] MEDS: IBUPROFEN 600 MG TAB PO PRN (03:30)
[2024-08-22 05:50] LABS: Basophils # (auto) 0 10 ^3/uL (0-0.2); Basophils % (auto) 0.1 % (0.0-2.0); Eosinophils # (auto) 0 10 ^3/uL (0-0.8); Hematocrit 40.5 % (36.0-46.0); Hemoglobin 13.6 g/dL (12.2-16.2); Lymphocytes # (auto) 0.8 10 ^3/uL (0.4-5.4); Lymphocytes % (auto) 10.6 % (10.0-50.0); Mean Corpuscular Hemoglobin 30.5 pg (28.0-32.0); Mean Corpuscular Hgb Conc. 33.7 g/dL (32.0-36.0); Mean Corpuscular Volume 90.4 fL (80.0-100.0); Monocytes # (auto) 0.7 10 ^3/uL (0-1.3); Monocytes % (auto) 9.1 % (0.0-12.0); Neutrophils % (auto) 80.2 % (37.0-80.0); Platelet Count (auto) 222 10^3/uL (140-450); Red Blood Cells 4.48 10^6/uL (4.0-5.20); Red Cell Distribution Width 13.1 % (11.8-14.3); White Blood Cell 7.5 10^3/uL (4.4-10.8)
[2024-08-22 06:04] LABS: Albumin 4.5 g/dL (3.2-4.8); Alkaline Phosphatase 74 U/L (46-116); Anion Gap 11 (5-15); BUN/Creatinine Ratio 16.7 (10.0-20.0); Blood Urea Nitrogen 11 mg/dL (9-23); Calcium 9.4 mg/dL (8.7-10.4); Carbon Dioxide 20 mmol/L (20-31); Chloride 106 mmol/L (98-107); Potassium 3.7 mmol/L (3.5-5.1); Sodium 137 mmol/L (136-145)
[2024-08-22 06:05] LABS: Bilirubin, Total 0.5 mg/dL (0.2-1.0)
[2024-08-22 06:23] LABS: Alanine Aminotransferase 74 U/L (7-40); Aspartate Aminotransferase 44 U/L (13-40); Glucose 139 mg/dL (74-106)
--- NOTE | 2024-08-22 14:55 | DVHPNRES ---
Progress Note Date Seen: Aug 22, 2024 Resident Creating Document: FRED SHANKAR RESIDENT Medical Necessity Reason Pt with a Central, PICC or Fol: No Subjective Review of Systems Tiffany Plunkett is a 39-year-old female with past medical history of hypertension came to the hospital due to abdominal pain for 3 hours. Patient is seen and examined at the bedside. Patient currently reporting mild abdominal pain which is on and off mostly in the epigastrium on the right upper quadrant but no new complaints. Laparoscopic cholecystectomy postoperative day 1, patient tolerated the procedure well. Advancing diet as tolerated Objective vital signs Vital Sign Date Time Temp Pulse Resp B/P (MAP) Pulse Ox O2 Delivery O2 Flow Rate FiO2 08/22/24 13:00 98.3 80 16 143/91 (108) 98 98.3 08/21/24 20:00 Room Air* 0 21 Total Intake and Output 08/21/24 08/21/24 08/22/24 15:00 23:00 07:00 Intake Total 100 ml 0 ml 250 ml Output Total 0 ml 600 ml Balance 100 ml 0 ml -350 ml medications Current Medications Medications Dose Ordered Sig/Honey Route Start Time Stop Time Status Last Admin Dose Admin Sodium Chloride 1,000 ml @ 100 mls/hr Q10H IV 08/19/24 21:45 08/22/24 02:15 100 MLS/HR Piperacillin Sod/ Tazobactam Sod 100 ml @ 25 mls/hr Q8HR IV 08/19/24 22:00 08/22/24 13:16 25 MLS/HR Ondansetron HCl 4 mg Q4HPRN PRN IV 08/19/24 21:45 08/22/24 07:12 4 MG Morphine Sulfate 1 mg Q4HP PRN IV 08/19/24 21:45 08/22/24 07:12 1 MG Amlodipine Besylate 10 mg DAILY PO 08/20/24 10:00 08/22/24 10:23 10 MG Pantoprazole Sodium 40 mg DAILY IV 08/20/24 10:00 08/22/24 10:21 40 MG Meclizine HCl 25 mg Q8HPRN PRN PO 08/20/24 04:30 Ibuprofen 600 mg TID PRN PO 08/20/24 16:00 08/22/24 13:26 600 MG Examination Pt is lying on bed General Appearance: Alert, Oriented X3, Cooperative,moderate distress HEENT: Atraumatic, Mucous membranes moist/pink Respiratory: Clear to auscultation, Normal air movement Cardiovascular: Regular rate, Normal S1, Normal S2 Abdominal: Active bowel sounds, Soft, no distention, no tenderness Extremities: 2+ BLE pitting edema,unable to palpate pulses , ulcertaed wound on open wound to dorsum and plantar of right foot, left foot plantar ulcer s/p right dorsal & plantar foot I&D to bone wrapped in dressings Skin: wounds as described above Neuro: Normal speech, sensorimotor deficits none Psych/Mental Status: Mental status NL, Mood NL Nurse was there as sharperone during examination laboratory and microbiology Laboratory Tests 08/22/24 05:22 Test 08/22/24 05:22 Range/Units Serum Glucose 139 H 74-106 mg/dL Labs and/or images reviewed: Labs reviewed by me, Image(s) reviewed by me Problem List/Assessment/Plan Problem List/Assessment/Plan # Cholelithiasis with Acute cholecystitis - Ultrasound shows, cholelithiasis with evidence of acute cholecystitis - case consultant evaluated patient , underwent laparoscopic cholecystectomy postoperative day 1, patient tolerated the procedure well. - Empiric antibiotic, Zosyn - IV fluid - Pain control -advanced diet as tolerated # History of hypertension - Continue amlodipine # Transaminitis likly from above - Monitor for now Protonix Scds Advanced diet as tolerated Goals of care discussed with the patient for more than 29 mins: full code status Case discussed with , patient and RN Plan discussed with: Patient My Orders My Orders Orders - FRED SHANKAR RESIDENT Procedure Category Date Status Time Full Liq Diet DIET 08/22/24 Transmitted Lunch Dietary Evaluation Review Comments: 1. Pending surgical consult, advance to Cardiac diet as able 2. Pt not to go >7 days NPO -> currently day 2 3. Will follow for diet progression/PO intake Expected Outcomes/Goals: Diet advancement, adequate oral intakes. Date of Service: Aug 22, 2024 Billing Provider: KAYLEEN LIZARRAGA MD Common Visit Codes: [id number] INP/OBS CARE(HIGH) FRED SHANKAR Aug 22, 2024 14:55 KAYLEEN LIZARRAGA MD Aug 27, 2024 23:37
--- NOTE | 2024-08-22 17:33 | DVHPN2 ---
Progress Note Date Seen: Aug 22, 2024 Medical Necessity Reason Pt with a Central, PICC or Fol: No Objective vital signs Vital Sign Date Time Temp Pulse Resp B/P (MAP) Pulse Ox O2 Delivery O2 Flow Rate FiO2 08/22/24 16:34 90 16 142/90 08/22/24 13:00 98.3 98 98.3 08/22/24 07:30 Room Air* 0 21 Total Intake and Output 08/21/24 08/21/24 08/22/24 15:00 23:00 07:00 Intake Total 100 ml 0 ml 250 ml Output Total 0 ml 600 ml Balance 100 ml 0 ml -350 ml medications Current Medications Medications Dose Ordered Sig/Honey Route Start Time Stop Time Status Last Admin Dose Admin Sodium Chloride 1,000 ml @ 100 mls/hr Q10H IV 08/19/24 21:45 08/22/24 02:15 100 MLS/HR Piperacillin Sod/ Tazobactam Sod 100 ml @ 25 mls/hr Q8HR IV 08/19/24 22:00 08/22/24 13:16 25 MLS/HR Ondansetron HCl 4 mg Q4HPRN PRN IV 08/19/24 21:45 08/22/24 07:12 4 MG Morphine Sulfate 1 mg Q4HP PRN IV 08/19/24 21:45 08/22/24 07:12 1 MG Amlodipine Besylate 10 mg DAILY PO 08/20/24 10:00 08/22/24 10:23 10 MG Pantoprazole Sodium 40 mg DAILY IV 08/20/24 10:00 08/22/24 10:21 40 MG Meclizine HCl 25 mg Q8HPRN PRN PO 08/20/24 04:30 Ibuprofen 600 mg TID PRN PO 08/20/24 16:00 08/22/24 13:26 600 MG laboratory and microbiology Laboratory Tests 08/22/24 05:22 Test 08/22/24 05:22 Range/Units Serum Glucose 139 H 74-106 mg/dL Problem List/Assessment/Plan Problem List/Assessment/Plan AFEBRILE VSS ABD SOFT WOUNDS HEALING DRAIN 40 CC SEROSANGUINEOUS LFT WNL NO COMPLICATIONS ADVANCE DIET ASAF Plan discussed with: Patient Dietary Evaluation Review Comments: 1. Pending surgical consult, advance to Cardiac diet as able 2. Pt not to go >7 days NPO -> currently day 2 3. Will follow for diet progression/PO intake Expected Outcomes/Goals: Diet advancement, adequate oral intakes. PANCHO DAHL MD Aug 22, 2024 17:33
[2024-08-23] VITALS (7 sets, daily range): BP systolic 129–144; BP diastolic 80–96; PULSE 58–101; RESP 17–20; TEMP 97.7–98.7; O2SAT 98–100
--- NOTE | 2024-08-23 14:12 | DVHPN2 ---
Progress Note Date Seen: Aug 23, 2024 Medical Necessity Reason Pt with a Central, PICC or Fol: No Objective vital signs Vital Sign Date Time Temp Pulse Resp B/P (MAP) Pulse Ox O2 Delivery O2 Flow Rate FiO2 08/23/24 08:14 129/88 08/23/24 07:30 89 18 98 Room Air* 0 21 08/23/24 05:00 98.2 98.2 Total Intake and Output 08/22/24 08/22/24 08/23/24 15:00 23:00 07:00 Intake Total 100 ml 300 ml 1100 ml Balance 100 ml 300 ml 1100 ml medications Current Medications Medications Dose Ordered Sig/Honey Route Start Time Stop Time Status Last Admin Dose Admin Sodium Chloride 1,000 ml @ 100 mls/hr Q10H IV 08/19/24 21:45 08/23/24 06:25 100 MLS/HR Piperacillin Sod/ Tazobactam Sod 100 ml @ 25 mls/hr Q8HR IV 08/19/24 22:00 08/23/24 13:58 25 MLS/HR Ondansetron HCl 4 mg Q4HPRN PRN IV 08/19/24 21:45 08/22/24 07:12 4 MG Morphine Sulfate 1 mg Q4HP PRN IV 08/19/24 21:45 08/22/24 07:12 1 MG Amlodipine Besylate 10 mg DAILY PO 08/20/24 10:00 08/23/24 08:14 10 MG Pantoprazole Sodium 40 mg DAILY IV 08/20/24 10:00 08/23/24 08:13 40 MG Meclizine HCl 25 mg Q8HPRN PRN PO 08/20/24 04:30 Ibuprofen 600 mg TID PRN PO 08/20/24 16:00 08/23/24 08:13 600 MG laboratory and microbiology Laboratory Tests 08/22/24 05:22 Test 08/22/24 05:22 Range/Units Serum Glucose 139 H 74-106 mg/dL Problem List/Assessment/Plan Problem List/Assessment/Plan AFEBRILE VSS ABD SOFT WOUNDS HEALING DRAIN 40 CC SEROSANGUINEOUS LFT WNL NO COMPLICATIONS ADVANCE DIET ASAF CLEARED FOR DISCHARGE INSTRUCTIONS RE DIET ACTIVITY F/UP DRAIN CARE GIVEN Plan discussed with: Patient My Orders My Orders Orders - PANCHO DAHL MD Procedure Category Date Status Time Comprehensive LAB 08/23/24 Logged Metabolic Panel 13:56 Dietary Evaluation Review Comments: 1. Pending surgical consult, advance to Cardiac diet as able 2. Pt not to go >7 days NPO -> currently day 2 3. Will follow for diet progression/PO intake Expected Outcomes/Goals: Diet advancement, adequate oral intakes. PANCHO DAHL MD Aug 23, 2024 14:12
[2024-08-23] MEDS ORDERED: AUG875T PO (15:15)
--- NOTE | 2024-08-23 15:21 | DVHDSRES ---
Discharge Summary Date of Admission Resident Creating Document: FRED SHANKAR RESIDENT Aug 19, 2024 at 21:35 Date of Discharge: Aug 23, 2024 Admitting Diagnosis Abdominal pain Labs/Diagnostic Data: Laboratory Results Test 08/22/24 05:22 08/20/24 22:23 08/20/24 09:45 08/20/24 05:10 White Blood Count 7.5 10^3/uL (4.4-10.8) Red Blood Count 4.48 10^6/uL (4.0-5.20) Hemoglobin 13.6 g/dL (12.2-16.2) Hematocrit 40.5 % (36.0-46.0) Mean Corpuscular Volume 90.4 fL (80.0-100.0) Mean Corpuscular Hemoglobin 30.5 pg (28.0-32.0) Mean Corpuscular Hemoglobin Concent 33.7 g/dL (32.0-36.0) Red Cell Distribution Width 13.1 % (11.8-14.3) Platelet Count 222 10^3/uL (140-450) Mean Platelet Volume 9.5 fL (6.9-10.8) Neutrophils (%) (Auto) 80.2 % (37.0-80.0) Lymphocytes (%) (Auto) 10.6 % (10.0-50.0) Monocytes (%) (Auto) 9.1 % (0.0-12.0) Eosinophils (%) (Auto) 0.0 % (0.0-7.0) Basophils (%) (Auto) 0.1 % (0.0-2.0) Neutrophils # (Auto) 6.0 10 ^3/uL (1.6-8.6) Lymphocytes # (Auto) 0.8 10 ^3/uL (0.4-5.4) Monocytes # (Auto) 0.7 10 ^3/uL (0-1.3) Eosinophils # (Auto) 0 10 ^3/uL (0-0.8) Basophils # (Auto) 0 10 ^3/uL (0-0.2) Nucleated Red Blood Cells 0.0 % Sodium Level 137 mmol/L (136-145) Potassium Level 3.7 mmol/L (3.5-5.1) Chloride Level 106 mmol/L (98-107) Carbon Dioxide Level 20 mmol/L (20-31) Anion Gap 11 (5-15) Blood Urea Nitrogen 11 mg/dL (9-23) Creatinine 0.66 mg/dL (0.550-1.02) Glomerular Filtration Rate Calc 115 mL/min (>90) BUN/Creatinine Ratio 16.7 (10.0-20.0) Serum Glucose 139 mg/dL (74-106) Calcium Level 9.4 mg/dL (8.7-10.4) Total Bilirubin 0.5 mg/dL (0.2-1.0) Aspartate Amino Transferase (AST) 44 U/L (13-40) Alanine Aminotransferase (ALT) 74 U/L (7-40) Alkaline Phosphatase 74 U/L (46-116) Total Protein 7.0 g/dL (5.7-8.2) Albumin 4.5 g/dL (3.2-4.8) Influenza Type A Antigen Negative (Negative) Influenza Type B Antigen Negative (Negative) SARS-CoV-2 Antigen (Rapid) Negative (NEGATIVE) Lactic Acid Level 0.8 mmol/L (0.4-2.0) Prothrombin Time 11.4 sec (9.3-11.8) Prothrombin Time INR 1.08 (0.9-1.15) Lipase 41 U/L (12-53) Beta HCG, Quantitative 0.8 mIU/mL (1.5-4.2) Test 08/19/24 20:04 08/19/24 19:31 Urine Color Colorless (Yellow) Urine Clarity Clear (Clear) Urine pH 7.0 (5.0-9.0) Urine Specific [place] 1.011 (1.001-1.035) Urine Protein Negative (Negative) Urine Ketones Negative (Negative) Urine Blood Negative /uL (Negative) Urine Nitrite Negative (Negative) Urine Bilirubin Negative (Negative) Urine Urobilinogen Normal mg/dL (Negative) Urine Leukocyte Esterase Negative /uL (Negative) Urine RBC 1 /hpf (0 - 4) Urine Microscopic WBC < 1 /HPF (0-5) Urine Squamous Epithelial Cells Few /hpf (<5) Urine Bacteria Few /hpf (None Seen) Urine Glucose Normal mg/dL (Normal) Urine Opiates Screen Neg (NEGATIVE) Urine Fentanyl Screen Neg (NEGATIVE) Urine Barbiturates Screen Neg (NEGATIVE) Urine Phencyclidine Screen Neg (NEGATIVE) Urine Amphetamines Screen Neg (NEGATIVE) Urine Benzodiazepines Screen Neg (NEGATIVE) Urine Cocaine Screen Neg (NEGATIVE) Urine Cannabinoids Screen Neg (NEGATIVE) Hemoglobin A1c 5.3 % A1C (<5.7) Magnesium Level 2.1 mg/dL (1.6-2.6) Triglycerides Level 200 mg/dL (< 150) Cholesterol Level 199 mg/dL (< 200) LDL Cholesterol 142 mg/dL (< 100) HDL Cholesterol 41 mg/dL (40-59) Thyroid Stimulating Hormone (TSH) 1.76 uIU/mL (0.55-4.78) Plasma/Serum Blood Alcohol < 3.0 mg/dL (<10) Other Laboratory Tests 08/22/24 05:22 Brief Hx & Hospital Course: Tiffany Plunkett is a 39-year-old female with past medical history of hypertension came to the hospital due to abdominal pain for 3 hours. She reports an intermittent epigastric pain, radiating to the back, 8/10, burning in nature, with no clear exacerbating or relieving factor. She also reports shortness of breaths. She denies fever, nausea, vomiting, or any bowel and bladder habit changes. She had same pain few years back which was mild but had not perform any workup at the time. Patient with a hospital admission for further evaluation and management of abdominal pain. Gallbladder ultrasound showed findings suggestive of cholelithiasis with evidence of acute cholecystitis. Patient was started on Zosyn, IVF and pain control. dynamics ax consultant evaluated the patient and performed laparoscopic cholecystectomy. Advanced diet slowly as tolerated and patient condition was improved, hemodynamically stable and in condition to discharged home with Augmentin for 5 days and to follow up with outpatient surgery for HUONG drain removal and further management along with the DC clinic. Patient was advised about healthy lifestyle modifications including diet and exercise and to follow up with upcoming appointments. Pt is lying on bed General Appearance: Alert, Oriented X3, Cooperative, Not in acute distress HEENT: Atraumatic, Mucous membranes moist/pink Respiratory: Clear to auscultation, Normal air movement, No added sounds Cardiovascular: Regular rate, Normal S1, Normal S2, No murmurs Abdominal: Active bowel sounds, Soft, no distention, no tenderness Extremities: No edema, Normal pulses, No tenderness/swelling Skin: No Significant rash, except past surgical scars Neuro: Normal speech, sensorimotor deficits none Psych/Mental Status: Mental status NL, Mood NL Nurse was there as sharperone during examination Consults/Reason for consult Surgeon for acute cholecystitis Operations or Procedures US GALLBLADDER Cholelithiasis with evidence of acute cholecystitis.Bilateral Kidneys are slightly prominent. - DATE OF SURGERY: 08/21/2024 PREOPERATIVE DIAGNOSIS: Acute cholecystitis. POSTOPERATIVE DIAGNOSIS: Acute cholecystitis. PROCEDURE: Laparoscopic cholecystectomy. SURGEON: Lincoln Barrientos MD STITCHDOWN TOE FORMER: None. ANESTHESIA: General. ESTIMATED BLOOD LOSS: 200 mL. DRAIN: One drain was used. COMPLICATIONS: No complications were encountered. DESCRIPTION OF PROCEDURE: The patient was prepped and draped in the usual sterile fashion in the supine position and a supraumbilical incision was applied, was taken down to the fascia. The Veress needle was introduced and CO2 insufflation was started, pressure of 15 mmHg. The needle was withdrawn, replaced with a 5 mm trocar and a telescope was introduced and the gallbladder was visualized. Adhesions were noted. A 12 mm port was applied close to the xiphisternum and two 5 mm ports were applied more laterally in subcostal line with instruments in place. The gallbladder was released from the adhesions and the patient in the head up and right upper lateral position, the gallbladder was then grasped at the fundus and the infundibulum and cystic duct and artery were , dissected out and clipped proximally, distally using the Hem-o-Landen clips and divided in between making sure that the CBD was kept out of harm's way at all times. The gallbladder was detached from the liver bed using Harmonic dissection, placed in an EndoCatch bag and removed from the xiphisternal wound without any complication. Hemostasis was secured. Irrigation fluid was removed and a size 19 Negrito drainage tube was placed to drain the liver bed along with the subhepatic space and bringing out from the lateral subcostal incision. After that, one port had been withdrawn and securing the drain with a silk suture. There was a bleed noted in the xiphisternal wound that was secured by open exploration and cautery. With this being done, EndoClose suture was used for the fascial closure of the xiphisternal wound. All ports were withdrawn after all the CO2 had been let out and the patient was placed in supine. The wounds were then brought together using 3-0 Monocryl suture in a subcuticular fashion. Surgical glue was applied. The patient tolerated the procedure well and was taken back to recovery room in a stable condition. Lincoln Barrientos MD RG/VIS Condition at Discharge: Stable Final Diagnosis/Problems List # Cholelithiasis with Acute cholecystitis Status post cholecystectomy # History of hypertension # Transaminitis likly from above Discharge Disposition: Home Discharge Instruct/Medications Diet: Regular Activity: No Restrictions, As Tolerated Follow Up/Referral: Surgery on outpatient to remove HUONG drain PCP DC clinic Medications: Augmentin for 2 times daily 5 days resume home meds Discharge Statement: "Patient was advised to return to the ER or call 911 if any headaches, dizziness, shortness of breath, chest pain, abdominal pain, bleeding, fevers, or worsening of medical condition. Patient was counseled about treatment plan, medications, possible side effects, patientverbalized understanding. All questions were answered to the best of my ability. This discharge took greater then 30 minutes in planning, reviewing documentation, counseling the patient, and discussing with other team members." ASSESSMENT ASSESSMENT Assessment Acute cholecystitis status post cholecystectomy Date of Service: Aug 23, 2024 Billing Provider: KAYLEEN LIZARRAGA MD Common Visit Codes: [id number] DISCH DAY >30min FRED SHANKAR RESIDENT Aug 23, 2024 15:21 KAYLEEN LIZARRAGA MD Aug 31, 2024 22:53
[2024-08-23 15:58] LABS: Alkaline Phosphatase 75 U/L (46-116); Anion Gap 6 (5-15); Aspartate Aminotransferase 21 U/L (13-40); BUN/Creatinine Ratio 10.7 (10.0-20.0); Bilirubin, Total 0.6 mg/dL (0.2-1.0); Calcium 9.8 mg/dL (8.7-10.4); Carbon Dioxide 26 mmol/L (20-31); Sodium 140 mmol/L (136-145); Total Protein 7.8 g/dL (5.7-8.2)
[2024-08-23 16:00] LABS: Alanine Aminotransferase 61 U/L (7-40); Albumin 5.1 g/dL (3.2-4.8); Blood Urea Nitrogen 8 mg/dL (9-23); Chloride 108 mmol/L (98-107); Glucose 113 mg/dL (74-106); Potassium 3.4 mmol/L (3.5-5.1)
== END 2024-08-23 18:55 | disposition home or self-care (01) | DRG 263 ==
LOC: EDBD 18:52 → ER 18:53 → OVERFLOW 21:35 → EAST 08-20 16:57
PROVIDERS: ADMIT Student in an Organized Health Care Education/Training Program
PROC: 0FT44ZZ Resection of Gallbladder, Percutaneous Endoscopic Approach (ICD-10-PCS; principal; 2024-08-21 15:23)
DX: K80.00 Calculus of gallbladder with acute cholecystitis without obstruction (principal); I10 Essential (primary) hypertension; R74.01 Elevation of levels of liver transaminase levels; Z20.822 Contact with and (suspected) exposure to COVID-19; K82.8 Other specified diseases of gallbladder; Z82.49 Family history of ischemic heart disease and other diseases of the circulatory system; Z83.3 Family history of diabetes mellitus; Z79.899 Other long term (current) drug therapy
CPT/HCPCS: 36415; 71045; 76705; 80053; 80061; 80307; 80320; 81001; 83036; 83605; 83690; 83735; 84443; 84702; 85025; 85610; 87426; 87804; 96374; 96375; G0378; J1885; J2003; J2250; J2405; J2470; J2543; J2704; J3490